=== PATIENT | male | born 1985 | race Caucasian/White ===

== ENCOUNTER 2018-02-19 20:49 | Inpatient (IN) | payer SELFPAY ==
[~2018-02-19] VITALS: Ht 175.3 cm; Wt 86.8 kg
[2018-02-19 21:13] VITALS: Ht 175.3 cm; Wt 86.8 kg
[2018-02-19 22:13] LABS: BASOPHIL % 0.6 % (0-2); PLATELET COUNT 400 x10^3mcL (130-400); RED CELL DISTRIBUTION WIDTH 13.8 % (11.5-14.5)
[2018-02-19 22:18] LABS: CALCIUM 9.2 mg/dL (8.5-10.1); CARBON DIOXIDE 29.5 mmol/L (21-32); CHLORIDE SERUM 98 mmol/L (98-107); GFR1 > 60 mL/min; GLUCOSE SERUM 103 mg/dL (74-106); POTASSIUM SERUM 3.1 mmol/L (3.5-5.1); SODIUM SERUM 139 mmol/L (136-145)
[2018-02-19 22:23] LABS: ALBUMIN 3.5 g/dL (3.4-5.0); ALKALINE PHOSPHATASE 142 U/L (46-116); ALT/SGPT 116 U/L (16-63); AST/SGOT 94 U/L (15-37); BILIRUBIN TOTAL 0.54 mg/dL (0.20-1.00); LIPASE 130 IU/L (73-393)
[2018-02-19 22:24] LABS: TOTAL PROTEIN, SERUM 8.7 g/dL (6.4-8.2)
[2018-02-20] VITALS (7 sets, daily range): BP systolic 106–132; BP diastolic 62–79
[2018-02-20 01:10] LABS: MAGNESIUM 2.4 mg/dL (1.8-2.4); PHOSPHOROUS 3.7 mg/dL (2.5-4.9)
[2018-02-20 01:14] LABS: T3 TOTAL 0.98 ng/mL
[2018-02-20 01:24] LABS: FREE T4 1.06 ng/dL (0.76-1.46); FREE THYROXINE INDEX 2.4 ug/dL (1.4-4.5); T4(THYROXINE) 6.6 ug/dL (4.7-13.3)
[2018-02-20 03:29] LABS: UA SPECIFIC GRAVITY <=1.005 (1.005-1.035); microscopic required? YES; urine erythrocyte 2+ (NEGATIVE)
[2018-02-20 03:38] LABS: AMPHETAMINE QUAL UR NONE DETECTED (NEG <=1000)
[2018-02-20 07:40] LABS: CARBON DIOXIDE 25.8 mmol/L (21-32); CHLORIDE SERUM 106 mmol/L (98-107); CREATININE SERUM 0.9 mg/dL (0.7-1.3); GFR1 > 60 mL/min; GLUCOSE SERUM 93 mg/dL (74-106); MAGNESIUM 2.2 mg/dL (1.8-2.4); PHOSPHOROUS 3.4 mg/dL (2.5-4.9); POTASSIUM SERUM 3.2 mmol/L (3.5-5.1); SODIUM SERUM 139 mmol/L (136-145)
[2018-02-20 07:44] LABS: BASOPHIL % 0.3 % (0-2); PLATELET COUNT 311 x10^3mcL (130-400); RED CELL DISTRIBUTION WIDTH 14.4 % (11.5-14.5)
[2018-02-21 06:18] LABS: BASOPHIL % 0.1 % (0-2); PLATELET COUNT 355 x10^3mcL (130-400); RED CELL DISTRIBUTION WIDTH 14.4 % (11.5-14.5)
[2018-02-21 06:22] LABS: CALCIUM 8.2 mg/dL (8.5-10.1); CARBON DIOXIDE 26.1 mmol/L (21-32); CHLORIDE SERUM 104 mmol/L (98-107); CREATININE SERUM 0.9 mg/dL (0.7-1.3); GFR1 > 60 mL/min; GLUCOSE SERUM 98 mg/dL (74-106); POTASSIUM SERUM 3.6 mmol/L (3.5-5.1); SODIUM SERUM 139 mmol/L (136-145)
[2018-02-21 06:26] VITALS: BP 117/68
[2018-02-21 07:43] VITALS: BP 110/63
[2018-02-21 08:09] VITALS: BP 129/88
[2018-02-21 12:20] VITALS: BP 124/61
[2018-02-21 16:48] VITALS: BP 119/70
[2018-02-21 20:47] VITALS: BP 106/71
[2018-02-22 05:11] VITALS: BP 113/74
[2018-02-22 06:25] LABS: PLATELET COUNT 365 x10^3mcL (130-400); RED CELL DISTRIBUTION WIDTH 14.3 % (11.5-14.5)
[2018-02-22 06:29] LABS: CALCIUM 8.1 mg/dL (8.5-10.1); CARBON DIOXIDE 27.2 mmol/L (21-32); CHLORIDE SERUM 104 mmol/L (98-107); CREATININE SERUM 0.9 mg/dL (0.7-1.3); GFR1 > 60 mL/min; GLUCOSE SERUM 107 mg/dL (74-106); MAGNESIUM 2.3 mg/dL (1.8-2.4); PHOSPHOROUS 3.6 mg/dL (2.5-4.9); POTASSIUM SERUM 3.7 mmol/L (3.5-5.1); SODIUM SERUM 139 mmol/L (136-145)
[2018-02-22 08:51] VITALS: BP 121/72
[2018-02-22 12:04] LABS: BAND NEUTROPHIL 2 % (0-10); BASOPHIL 0 % (0-2); MONOCYTE 7 % (0-7); SEGMENTED NEUTROPHILS 85 % (37-75)
[2018-02-22 12:05] LABS: PLATELET MORPHOLOGY PLATELETS NORMAL; rbc morphology (normal/abnorm) ABNORMAL (NORMAL)
[2018-02-22 13:03] VITALS: BP 119/78
[2018-02-22 13:06] VITALS: BP 122/78
[2018-02-22 16:46] VITALS: BP 112/64
[2018-02-22 21:00] VITALS: BP 127/77
[2018-02-23 05:27] VITALS: BP 124/79
[2018-02-23 06:07] LABS: BASOPHIL % 0.4 % (0-2); RED CELL DISTRIBUTION WIDTH 14.3 % (11.5-14.5)
[2018-02-23 06:22] LABS: CALCIUM 8.1 mg/dL (8.5-10.1); CHLORIDE SERUM 103 mmol/L (98-107); CREATININE SERUM 0.8 mg/dL (0.7-1.3); GFR1 > 60 mL/min; GLUCOSE SERUM 130 mg/dL (74-106); PHOSPHOROUS 2.9 mg/dL (2.5-4.9); POTASSIUM SERUM 3.5 mmol/L (3.5-5.1); SODIUM SERUM 139 mmol/L (136-145)
[2018-02-23 06:58] LABS: PLATELET COUNT 420 x10^3mcL (130-400)
[2018-02-23 08:32] VITALS: BP 131/87
[2018-02-23 16:53] VITALS: BP 138/90
[2018-02-23 20:57] VITALS: BP 142/90
[2018-02-24 06:08] VITALS: BP 136/85
[2018-02-24 06:41] LABS: CALCIUM 8.5 mg/dL (8.5-10.1); CARBON DIOXIDE 27.9 mmol/L (21-32); CHLORIDE SERUM 103 mmol/L (98-107); CREATININE SERUM 0.8 mg/dL (0.7-1.3); GFR1 > 60 mL/min; GLUCOSE SERUM 93 mg/dL (74-106); PHOSPHOROUS 4.2 mg/dL (2.5-4.9); POTASSIUM SERUM 3.7 mmol/L (3.5-5.1); SODIUM SERUM 137 mmol/L (136-145)
[2018-02-24 06:46] LABS: BASOPHIL % 0.3 % (0-2); RED CELL DISTRIBUTION WIDTH 14.2 % (11.5-14.5)
[2018-02-24 07:11] LABS: PLATELET COUNT 505 x10^3mcL (130-400)
[2018-02-24 08:41] VITALS: BP 158/98
[2018-02-24 13:36] LABS: BASOPHIL % 0.5 % (0-2); RED CELL DISTRIBUTION WIDTH 14.3 % (11.5-14.5)
[2018-02-24 13:39] LABS: PLATELET COUNT 513 x10^3mcL (130-400)
[2018-02-24] MEDS ORDERED: COLACE100 MG PO (15:22)
[2018-02-24] MEDS ORDERED: NORCO1 TA2 PO (15:22)
[2018-02-24 15:33] VITALS: BP 158/98
== END 2018-02-24 16:09 | disposition home or self-care (01) | DRG 853 ==
LOC: ED 20:49 → MU 02-20 00:31 → DU 02-20 00:31 → MU 02-20 09:55
PROVIDERS: Emergency Medicine; Family Medicine; Surgery
PROC: 0D9W0ZZ Drainage of Peritoneum, Open Approach (ICD-10-PCS; principal; 2018-02-21 09:45)
DX: A41.9 Sepsis, unspecified organism (principal); K35.3 Acute appendicitis with localized peritonitis; R74.0 Nonspecific elevation of levels of transaminase and lactic acid dehydrogenase [LDH]; E87.6 Hypokalemia; E78.1 Pure hyperglyceridemia; R31.9 Hematuria, unspecified; E02 Subclinical iodine-deficiency hypothyroidism; E78.5 Hyperlipidemia, unspecified; Z89.202 Acquired absence of left upper limb, unspecified level
CPT/HCPCS: 83880; 84439; 94150; J0690; J1170; J1644; J1885; J2270; J2405; J2543; J3010; J3480; J3490; J7030; J7040; Q0092; Q9967